=== PATIENT | female | born 1940 | race Caucasian/White ===

== ENCOUNTER 2016-11-07 15:24 | Inpatient (IN) | payer MEDICARE, BC ==
[~2016-11-07] VITALS: Ht 160 cm; Wt 77.2 kg
[2016-11-07 15:47] LABS: BILIRUBIN,URINE NEGATIVE (NEGATIVE); UROBILINOGEN,URINE NORMAL (NEGATIVE)
[2016-11-07 15:52] LABS: APPEARANCE,URINE CLEAR (CLEAR); UA COLOR YELLOW (YELLOW)
[2016-11-07] MEDS ORDERED: MEMA10TA PO (15:53)
[2016-11-07] MEDS ORDERED: ASPI-484 PO (15:55)
[2016-11-07] MEDS ORDERED: LEVO88TA5 PO (15:55)
[2016-11-07] MEDS ORDERED: DIVA500T17 PO (15:55)
[2016-11-07] MEDS ORDERED: DONE10TA7 PO (15:55)
[2016-11-07] MEDS ORDERED: MIRT15TA4 PO (15:55)
[2016-11-07 16:03] LABS: UR BENZODIAZEPINE QUAL NEGATIVE (NEGATIVE); UR COCAINE QUAL NEGATIVE (NEGATIVE)
[2016-11-07 16:08] LABS: BASOPHIL # 0.1 10^3/uL (0.0-0.1); BASOPHIL % 0.8 % (0.0-0.2); EOSINOPHIL # 0.3 10^3/uL (0.0-0.2); EOSINOPHIL % 3.2 % (0.0-5.0); HEMOGLOBIN 14.9 g/dL (12.0-15.0); LYMPHOCYTES % 28.9 % (24.0-44.0); MEAN CELL HGB 30.1 pg (26-34); MEAN CELL HGB CONCENTRATION 33.6 g/dL (33-37); MEAN CORP VOLUME 89.5 fL (78-100); MEAN PLATELET VOLUME 10.5 fL (7.8-11.0); MONOCYTES % 9.7 % (5.0-12.0); NEUTROPHIL # 5.9 10^3/uL (1.8-7.7); NEUTROPHILS % 57.1 % (41.0-85.0); RED CELL DISTRIBUTION WIDTH 14.5 % (11.5-14.5); WHITE BLOOD CELL 10.3 10^3/uL (4.5-11.0)
--- NOTE | 2016-11-07 16:10 | ER.PDOC ---
General Chief Complaint: Medical Clearance Stated Complaint: MEDICAL CLEARANCE TRAVEL OUT OF US: No Time seen by MD: 15:52 Source: patient, family History of Present Illness Initial Comments Advanced dementia, would like medical clearance for psych evaluation Allergies: Coded Allergies: No Known Allergies (Unverified , 11/07/16) Home Meds Reported Medications Donepezil Hcl (DONEPEZIL HCL) 10 Mg Tablet, 1 TAB PO DAILY, #90 TAB 1 Refill 11/07/16 Mirtazapine (MIRTAZAPINE) 15 Mg Tablet, 1 TAB PO HS, #30 TAB 3 Refills 11/07/16 Levothyroxine Sodium (LEVOTHYROXINE SODIUM) 88 Mcg Tablet, 1 TAB PO DAILY, #30 TAB 5 Refills 11/07/16 Aspirin (ASPIR 81) 81 Mg Tablet.dr, 1 TAB PO DAILY, #30 TAB 5 Refills 11/07/16 Divalproex Sodium (DIVALPROEX SODIUM ER) 500 Mg Tab.er.24h, 0.5 TAB PO BID, #60 TAB 11/07/16 Memantine Hcl (NAMENDA) 10 Mg Tablet, 28 MG PO DAILY, TABLET 11/07/16 Past Medical History Medical History: other Surgical History: hysterectomy, other Social History Smoking: non-smoker Alcohol Use: none Drug Use: none Review of Systems Constitutional: see HPI EENTM: no symptoms reported Respiratory: no symptoms reported Cardiovascular: no symptoms reported Gastrointestinal: no symptoms reported Genitourinary: no symptoms reported Musculoskeletal: no symptoms reported Psychiatric/Neurological: see HPI, anxiety, emotional problems Physical Exam General Appearance: No Apparent Distress, WD/WN Neck: Non-Tender Respiratory: chest non-tender CVS: reg rate & rhythm Gastrointestinal: Normal Bowel Sounds Rectal: Normal Exam Back: Normal Inspection Neurologic/Psychiatric: support representative II-XII NML as Tested Skin: Normal Color Lymphatic: No Adenopathy Results/Orders Results/Orders Laboratory Tests Test 11/07/16 15:41 11/07/16 15:55 11/07/16 16:10 Urine Collection Type Unknown Urine Color Yellow (YELLOW) Urine Appearance Clear (CLEAR) Urine Bilirubin Negative MG/DL (NEGATIVE) Urine Ketones Negative (NEGATIVE) Urine Specific [place] 1.020 (1.005-1.035) Urine pH 6 (5.0-6.0) Urine Protein Negative (NEGATIVE) Urine Urobilinogen Normal (NEGATIVE) Urine Nitrate Negative (NEGATIVE) Urine Leukocyte Esterase Negative (NEGATIVE) Urine Blood Negative (NEGATIVE) Urine Glucose Normal (NEGATIVE) Opiates Screen Negative (NEGATIVE) Barbiturate Screen Negative (NEGATIVE) Urine Tricyclic Antidepressants Negative (NEGATIVE) Phencyclidine (PCP) Screen Negative (NEGATIVE) Amphetamines Screen Negative (NEGATIVE) Benzodiazepines Screen Negative (NEGATIVE) Cocaine Screen Negative (NEGATIVE) Ur Tetrahydrocannabinol (THC) Scrn Negative (NEGATIVE) White Blood Count 10.3 10^3/uL (4.5-11.0) Red Blood Count 4.95 10^6/uL (4.00-5.20) Hemoglobin 14.9 g/dL (12.0-15.0) Hematocrit 44.3 % (36.0-46.0) Mean Corpuscular Volume 89.5 fL (78-100) Mean Corpuscular Hemoglobin 30.1 pg (26-34) Mean Corpuscular Hemoglobin Concent 33.6 g/dL (33-37) Red Cell Distribution Width 14.5 % (11.5-14.5) Platelet Count 233 10^3/uL (150-400) Mean Platelet Volume 10.5 fL (7.8-11.0) Neutrophils (%) (Auto) 57.1 % (41.0-85.0) Lymphocytes (%) (Auto) 28.9 % (24.0-44.0) Monocytes (%) (Auto) 9.7 % (5.0-12.0) Neutrophils # (Auto) 5.9 10^3/uL (1.8-7.7) Lymphocytes # (Auto) 3.0 10^3/uL (1.0-4.8) Monocytes # (Auto) 1.0 10^3/uL (0.3-0.8) Absolute Immature Granulocyte (auto 0.03 10^3 u/L (0-2) Eosinophils % 3.2 % (0.0-5.0) Basophils % 0.8 % (0.0-0.2) Basophils # 0.1 10^3/uL (0.0-0.1) Eosinophil Count 0.3 10^3/uL (0.0-0.2) Prothrombin Time 10.8 SEC (9.8-11.9) Prothromb Time International Ratio 1.0 Activated Partial Thromboplast Time 24.1 SEC (24.67-30.72) Sodium Level 141 mmol/L (132-145) Potassium Level 3.6 mmol/L (3.6-5.2) Chloride Level 106.0 mmol/L (96-109) Carbon Dioxide Level 27.5 mmol/L (20.0-32) Anion Gap 11.1 Blood Urea Nitrogen 10 mg/dL (7-18) Creatinine 0.79 mg/dL (0.59-1.40) Estimated GFR () 86.1 (>/=60) BUN/Creatinine Ratio 12.0 Glucose Level 110 mg/dL (70-110) Hemoglobin A1c 6.1 % (4.2-6.2) Calcium Level 8.8 mg/dL (8.4-10.5) Total Bilirubin 0.2 mg/dL (0.2-1.0) Aspartate Amino Transf (AST/SGOT) 23 U/L (0-35) Alanine Aminotransferase (ALT/SGPT) 25 U/L (12-78) Alkaline Phosphatase 100 U/L (50-136) Total Creatine Kinase 63 U/L (26-192) Creatine Kinase MB 0.9 ng/mL (0.5-3.6) Troponin I < 0.02 ng/mL (0.00-0.05) C-Reactive Protein 0.18 mg/dL (0.00-5.00) Pro-B-Type Natriuretic Peptide 293 pg/mL (0-125) Total Protein 7.7 g/dL (6.4-8.2) Albumin 3.4 g/dL (3.4-5.0) Globulin 4.3 Triglycerides Level 195 mg/dL (20-200) Cholesterol Level 258 mg/dL (120-240) LDL Cholesterol, Calculated 148.0 VLDL Cholesterol 39.0 HDL Cholesterol 71 mg/dL (32-96) Cholesterol Ratio (LDL/HDL) 2.0 Cholesterol/HDL Ratio [id number] Thyroid Stimulating Hormone (TSH) 13.126 mIU/mL (0.358-3.740) Valproic Acid (Depakene) Level 24 ug/mL (50-100) [place] Level < 0.20 mmol/L (0.6-1.2) Percent Immature Gran (Cell Imm) 0.30 % (0.00-0.50) Blood Gas Sample Site Left radial artery Blood Gas pH 7.446 (7.350-7.450) Blood Gas PCO2 38.1 mmHg (35.0-45.0) Blood Gas PO2 77.9 mmHg (75.0-100.0) Blood Gas HCO3 25.6 mmol/L (22.0-26.0) Blood Gas Base Excess 1.7 mmol/L (-2.0-2.0) James Test Positive Arterial Blood Oxygen Saturation 95.9 % (95-) Deoxyhemoglobin 4.1 % (0.2-0.6) Carboxyhemoglobin 0.6 % (0.5-1.5) Methemoglobin 0.2 % (0.2-0.6) Total Hemoglobin 15.0 % (13.5-17.5) Total Oxygen Concentration 20.1 % (13.5-17.5) Lactic Acid (Blood Gas) 1.8 MMOL/L (0.5-1.0) Blood Gas Temperature 37 Oxygen Delivery Method (LAB) Ra FiO2 21 % (20-101) Bicarbonate 26.8 mmol/L (23-27) Departure Time of Disposition: 17:10 Disposition: 09 ADMITTED INPATIENT Impression: Primary Impression: Dementia Referrals: RACHEL YANES MD,FACP (PCP) PRIMARY CARE PROVIDER LANA MOSES MD Nov 07, 2016 16:10
[2016-11-07 16:14] LABS: ABG PCO2 38.1 mmHg (35.0-45.0); ABG PH 7.446 (7.350-7.450); BE(B) 1.7 mmol/L (-2.0-2.0); HCO3act 25.6 mmol/L (22.0-26.0); pO2 77.9 mmHg (75.0-100.0)
--- NOTE | 2016-11-07 16:16 | DIREP ---
PROCEDURE:CHEST 1 VIEW COMPARISON:None. INDICATIONS:MEDICAL CLEARANCE FINDINGS: LUNGS/PLEURA:No significant pulmonary parenchymal abnormalities. No effusions. VASCULATURE:Normal. Unremarkable pulmonary vasculature. CARDIAC:Normal. No cardiac silhouette abnormality or cardiomegaly. MEDIASTINUM:Normal. No visible mass or adenopathy. BONES:A mild dextroscoliosis is seen of the thoracic spine. OTHER:Negative. CONCLUSION:No active or acute cardiopulmonary disease is seen. Dictated by: Brayan Breaux M.D. on 11/07/2016 at 04:13 PM
[2016-11-07] MEDS ORDERED: ATIVAN ONE (16:35)
[2016-11-07] MEDS ORDERED: HALDOL ONE (16:38)
[2016-11-07 16:45] LABS: ALANINE AMINOTRANSFERASE 25 U/L (12-78); ALKALINE PHOSPHATASE 100 U/L (50-136); ASPARTATE AMINO TRANSFERASE 23 U/L (0-35); CALCIUM 8.8 mg/dL (8.4-10.5); CARBON DIOXIDE 27.5 mmol/L (20.0-32); CHOLESTEROL 258 mg/dL (120-240); GLUCOSE 110 mg/dL (70-110); HDL CHOLESTEROL 71 mg/dL (32-96)
[2016-11-07 17:45] VITALS: BP 131/90
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
[2016-11-07] MEDS ORDERED: HALDOL IM PRN (18:30)
[2016-11-07] MEDS ORDERED: HALDOL PO PRN (18:30)
[2016-11-07] MEDS: ATIVAN PO PRN (18:38)
[2016-11-07] MEDS ORDERED: LORAZEPAM IM PRN (19:00)
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
[2016-11-07 19:59] VITALS: BP 163/93
[2016-11-07] MEDS: DEPAKOTE ER PO SCH (20:42)
[2016-11-07] MEDS: RISPERDAL PO SCH (20:42)
[2016-11-07] MEDS: REMERON PO SCH (21:00)
--- NOTE | 2016-11-07 23:57 | PRM.ACF1 ---
Admission Criteria Forms PSYCHIATRIC DISORDERS Clinical Indications for Inpatient Care (Place 'X' for any and all applicable criteria): Ongoing inpatient care may be needed for 1 or more of the following(1)(2)(3)(4)( 6)(7)(8): [ ]I. Danger to self or others not manageable at lower level of care. [ ]II. Grave disability (eg, inability to perform self care necessary at lower level of care) [ ]III. Agitation or inappropriate behavior interfering with care for primary condition (eg, attempting to discontinue lines or drains prematurely, unable to cooperate with respiratory care) [X]IV. Severe disability or disorder indicated by ALL of the following: [X]a) Severe behavioral health disorder-related symptoms or condition indicated by 1 or more of the following: [ ]i) Severe problem with cognition, memory, judgment, or impulse control [X]ii) Severe clinical manifestations (eg, hallucinations, delusions, other acute psychotic symptoms, fay, extreme agitation or anxiety)C [X]b) Patient management at lower level of care is not feasible until acute intervention or modification is initiated. Extended stay beyond goal length of stay for the primary condition may be needed untilALLof the following are present(1)(2)(3)(4)7)40)(23): [ ]a) Danger to self or others is absent or manageable at lower level of care [ ]b) Behavior crisis management, including physical or chemical restraints, is required and is not available at a lower level of care. [ ]c) Behavioral symptoms (e.g., agitation, somnolence, inappropriate behavior) are present, and are not manageable at a lower level of care. [ ]d) Patient cannot understand follow-up treatment and crisis plan. [ ]e) Provider and supports are sufficiently available at lower level of care. [ ]f) Patient can participate (e.g., verify absence of plan for harm) and is in needed of monitoring. The original [facility] [place] [place] [employer] content created by [facility] [employer] has been revised. The portions of the content which have been revised are identified through the use of italic text, and [employer] has neither reviewed nor approved the modified material. All other unmodified content is copyright [facility]. Please see references footnoted in the original [facility] [place] [place] [facility] edition 2015 Is [facility]/Br[facility] added/comple: YES JIAN RM CDS Nov 07, 2016 23:57
[2016-11-08] MEDS ORDERED: ARICEPT ONE (06:46)
[2016-11-08] MEDS ORDERED: ASPIRIN EC ONE (06:46)
[2016-11-08] MEDS ORDERED: NAMENDA ONE (06:47)
[2016-11-08 07:53] VITALS: BP 150/90
--- NOTE | 2016-11-08 08:30 | NUR ---
BEHAVIOR NOTE: This morning patient allowed COMPOUNDING PHARMACY TECHNICIAN to assist her with shower and nurse to perform skin assessment. Patient ate breakfast and is calm but becomes tearful and frustrated with pressured voice demanding to call her and to go home. Patient is sitting in a recliner in the day room mumbling to herself but denies hearing voices or talking to anyone. She is stating " Nothing is wrong with me" " I want to go home". Patient recently was discharged from [facility] and family reports her condition/symptoms/behaviors have worsened.
[2016-11-08] MEDS: ASPIRIN EC PO SCH (08:49)
[2016-11-08] MEDS: RISPERDAL PO SCH ×2 (08:49→21:00)
[2016-11-08] MEDS: DEPAKOTE ER PO SCH ×2 (08:49→21:00)
[2016-11-08] MEDS: NAMENDA PO SCH ×2 (08:50→21:00)
[2016-11-08] MEDS: ARICEPT PO SCH (08:50)
[2016-11-08] MEDS: SYNTHROID PO SCH (08:50)
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
--- NOTE | 2016-11-08 15:15 | NUR ---
MMSE: 03/21 MODERATE TO SEVERE IMPAIRMENT Addendum: 11/11/16 at 1515 by Yolande De Guzman, TERRY, J2EE CONSULTANT SW Amended: Links added.
--- NOTE | 2016-11-08 15:18 | NUR ---
GMAS: 05/21 NO DEPRESSION Addendum: 11/11/16 at 1518 by Yolande De Guzman, TERRY, FORENSIC SERGEANT SW Amended: Links added.
--- NOTE | 2016-11-08 15:31 | NUR ---
BATHROOM AIDE WAS GOING AROUND EMPTYING TRASH CAN IN ROOMS. WHEN ENTERED PTS BATHROOM TO CHECK TRASH CAN SHE FOUND THE TOILET PACKED WITH PAPER TOWELS. ASKED PT WHY PAPER TOWEL WERE STUFFED IN THE TOILER AND SHE SAID SHE DID NOT DO IT SHE HAS BEEN LYING IN THE BED THE WHOLE TIME. ALL THE PAPER TOWELS WERE REMOVED TILL TOILET FLUSHED FREELY. HOUSEKEEPING CALLED AND CAME AND REMOVED THE PAPER TOWELS FROM THE BATHROOM. EXPLAINED/SHOWED PT WHERE TOILET PAPER WAS. PT WENT AND POINTED TO IT. THEN CAME OUT AND SAID SHE COULD NOT GET THE PAPER TO COME OUT. SHOWED PT HOW TO GET THE TOILET PAPER TO COME OUT. WILL CONT TO MONITOR PT
--- NOTE | 2016-11-08 17:10 | NUR ---
BEHAVIOR NOTE: Patient has been calm today. She has requested to call her but has not become agitated when unable to reach him. Earlier today she was laying on her bed talking to herself crying. She denies hallucinations, delusions and suicidal thoughts and does not think anything is wrong with her. Patient has some memory loss and forgets where her room is and requires redirection. cnc machinist 2nd shift reported that she was confused about the toilet.
--- NOTE | 2016-11-08 18:45 | NUR ---
report received report from offgoing shift
[2016-11-08 19:58] VITALS: BP 132/71
--- NOTE | 2016-11-08 20:34 | NUR ---
medications Patient anxious, aggitated, countinously insisting on calling her , unable to redirect at this time, patient aggressive and hitting fists on nursing station counter, RN notified this nurse to give ativan 0.5mg at this time per prn orders
[2016-11-08] MEDS: REMERON PO SCH (21:00)
[2016-11-09] MEDS: SYNTHROID PO SCH (05:46)
[2016-11-09] MEDS ORDERED: ATIVAN ONE (05:58)
[2016-11-09] MEDS ORDERED: RISPERDAL ONE (06:43)
[2016-11-09] MEDS: ARICEPT PO SCH (07:23)
[2016-11-09] MEDS: ASPIRIN EC PO SCH (07:23)
[2016-11-09] MEDS: RISPERDAL PO SCH ×3 (07:23→20:27)
[2016-11-09] MEDS: NAMENDA PO SCH ×2 (07:23→20:27)
[2016-11-09] MEDS: DEPAKOTE ER PO SCH ×2 (07:23→20:27)
[2016-11-09 07:45] VITALS: BP 148/102
--- NOTE | 2016-11-09 08:07 | NUR ---
Status Pt is aggressive, yelling, attempting to bite, kick, hit staff, and is exit-seeking. Yells, "I own this hospital! I demand you let me call my right now!" "I've never seen such stupid people running this place." "When I started this, I put stipulations to let people call their family members whenever they want!" "You're all fired! I want you out of here now!" "I own this hospital, you need to get the hell out!" Pt is unable to be redirected with verbalization @ this time, PRN haldol and ativan have been administered @ this time d/t escalation in agitation and aggressiveness. Pt escorted to room with x 2 staff, security present @ this time.
--- NOTE | 2016-11-09 08:42 | PRM.PN ---
Mood: UP AND DOWN, IRRITABLE, MOOD SWINGS Sleep: SLEPT 8 HOURS LAST NIGHT Appetite: NORMAL APPETITE Suidical thoughts: NONE REPORTED Homicidal thoughts: NONE REPORTED Recent stressors: STRESS OF MENTAL ILLNESS Family support: AND DAUGHTER Aggressive Behavior: AGITATED, TRIES TO HIT STAFF, YELLS AND SCREAMS Ability to Perform ADL'sc: ABLE TO DO HER ADLS Psychotic sympstoms: DELUSIONAL THINKING, HALLUCINATIONS, PARANOIA Manic Symptoms: MOOD SWINGS, LABILE MOOD Living situation: LIVES AT HOME WITH HER Illicit Drug usec: NONE REPORTED Alcoholo use: NONE REPORTED Tobacco use: NONE REPORTED Family,PT,Surgical,&Current HX: Anxity Symptoms: MODERATE TO HIGH ANXIETY LEVEL Anger/Irritablility: SHE HAS PROBLEMS WITH ANGER AND IRRITABILITY Muscle Strength & Tone: WNL Gait & Station: WNL Appearance: Well groomed/hygience, Casual attire, Normal weight, Appears age stated Attitude & Behaviour: Uncooperative, Poor eye contact, Hostile, Psychomotor agitation Mood & Affect: Iabile, Blunted, Angry, Depressed Orientation: Disoriented to place, Disoriented to time, Disoriented to situation Attention/Concentration: Poor attention, Poor concentration Speech: Pressured, hyperverbal Judgement/Insight: Poor judgement, Poor insight Thought Process: Loose, Tangential Language: Kiswahili Thought content/Abnormal/Psych: A/V Barrett, Delusions Fund of Knowledge: Other Associations: JAREN Memory (recent and remote): Recent memory repaired, Remote memory repaired Constitutional: None Neurological: None Psychiatric: Depressed, Anxious, Psychosis [place] I: DELUSIONAL DISORDER; PSYCHOSIS; DEPRESSION; ANXIETY; DEMENTIA [place] II: DEFERRED [place] III: REFER TO PMH/MEDICAL CHART [place] IV: STRESS OF MENTAL ILLNESS [place] V: GAF=25 Assessment/Plan Assessment/Plan Assessment/Plan First Vital Signs Date Time Temp Pulse Resp B/P (MAP) Pulse Ox O2 Delivery O2 Flow Rate FiO2 11/07/16 15:46 97.9 81 18 99 11/07/16 15:50 136/82 (100) 11/07/16 17:45 Room Air Last Vital Signs Date Time Temp Pulse Resp B/P (MAP) Pulse Ox O2 Delivery O2 Flow Rate FiO2 11/08/16 19:58 96.4 79 20 132/71 (91) 96 Room Air THE PATIENT WAS SEEN BY DR. JAVED VIA TELEMEDICINE EQUIPMENT (VSEE) ALONG WITH THE TREATMENT TEAM. SHE HAS BEEN ANGRY AND IRRITABLE. SHE HAS BEEN AGGRESSIVE TOWARDS STAFF. THE PATIENT'S BEHAVIORS HAVE BEEN WORSE OVER THE PAST TWO WEEKS. THE PATIENT HAS SEXUALLY INAPPROPRIATE. THE PATIENT HAS DELUSIONAL THINKING THAT HER IS CHEATING ON HER. SHE HAS BEEN AGGRESSIVE TOWARDS HER . THE PATIENT HAS POOR INSIGHT INTO HER ILLNESS. THE PATIENT IS SLEEPING AND EATING OK. THE PATIENT SLEPT 8 HOURS LAST NIGHT. THE PATIENT DENIES SI OR HI. ASSESSMENT: DELUSIONAL DISORDER; PSYCHOSIS; DEPRESSION; GENERALIZED ANXIETY DISORDER; DEMENTIA WITH BEHAVIOR PROBLEMS PLAN: 1) CONTINUE [facility] MANAGEMENT. 2) INCREASE RISPERDAL TO 0.5MG PO BID. CONTINUE OTHER MEDICATIONS AT CURRENT DOSES. STAFF AGREEABLE WITH THE PLAN. THE PATIENT HAS A BENIGN BRAIN MASS PER FAMILY. SHE HAS NOT HAD A CT SCAN IN ABOUT A YEAR. SHE WILL GET A CT SCAN AND HAVE IT COMPARED TO HER PAST CT SCAN. Problems: (1) Dementia Status: Chronic ICD Code: F03.90 - Unspecified dementia without behavioral disturbance SNOMED: [id number] Patient History: Unknown LANA JAVED IV, MD Nov 09, 2016 08:42
--- NOTE | 2016-11-09 09:00 | NUR ---
VSEE Pt was seen by Dr. Howard via telemed. Received orders to increase scheduled risperdal, see EMAR. Pt has calmed down, is no longer yelling or attempting to hit staff. Pt is actively hallucinating, talking to wall or people not there. States, "I need to call my so I can get out of here. He is waiting for me to call him. I need to leave this hospital. There's nothing wrong with me." Able to be redirected with verbalization @ this time.
[2016-11-09 19:56] VITALS: BP 140/90
[2016-11-09] MEDS: REMERON PO SCH (20:27)
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
[2016-11-10] MEDS: SYNTHROID PO SCH (05:48)
[2016-11-10] MEDS: RISPERDAL PO SCH ×2 (07:35→20:14)
[2016-11-10] MEDS: ARICEPT PO SCH (07:35)
[2016-11-10] MEDS: ASPIRIN EC PO SCH (07:35)
[2016-11-10] MEDS: NAMENDA PO SCH ×2 (07:35→20:14)
[2016-11-10] MEDS: DEPAKOTE ER PO SCH ×2 (07:36→20:14)
[2016-11-10 07:58] VITALS: BP 149/78
--- NOTE | 2016-11-10 09:24 | DIREP ---
PROCEDURE:CT HEAD OR BRAIN W/O CONTRAST COMPARISON:[facility], CR, XRAY CHEST SINGLE VW, 11/07/2016, 03:16 PM. INDICATIONS:Brain mass TECHNIQUE:CT images were created without intravenous contrast. The study was reviewed on brain, subdural and bone windows. FINDINGS: VENTRICLES:Mild to moderate ventriculomegaly with atrophy noted. Mild periventricular white matter changes identified. CEREBRUM:Normal cerebral morphology with appropriate yang white matter differentiation. No acute infarct, bleed or mass lesion is seen. No acute or chronic epidural, subdural or subarachnoid hemorrhage is seen. No edema, midline shift or increased intracranial pressure is seen. CEREBELLUM:Negative. BRAINSTEM:Negative. BASAL CISTERNS:Negative. HEMORRHAGE:No MASS LESION:No ACUTE INFARCT:No SKULL:Normal. SINUSES:Normal. OTHER:None CONCLUSION:Moderate ventriculomegaly with atrophy and white matter changes. No acute infarct, bleed or mass lesion is seen. Suggest MR of the brain if a small mass lesion is suspected. Dictated by: Dixon Cavanaugh MD on 11/10/2016 at 09:21 AM
--- NOTE | 2016-11-10 13:00 | NUR ---
Status Pt is alert and oriented to self, month, and year. Has flat, but cooperative affect. Pt is able to be redirected with verbalization, able to follow simple commands. Pt is seen talking to self and has been overheard praying, "Dear God, please, let me go home. I won't ever do anything wrong again. I promise to be good. Just let me go home. I'll do what I'm supposed to. Have my come pick me up and take me home. I love my family so much. I want to go home, please God."
--- NOTE | 2016-11-10 14:14 | NUR ---
CT Spoke to pt's daughter, Deyanira, to confirm whether or not pt had reports of previous CTs. Daughter states that she will fax over latest CT report for comparison. Daughter reports that previous CTs have been done with contrast. Dr Rossi called and notified, received orders for CT of head with contrast.
--- NOTE | 2016-11-10 16:51 | DIREP ---
PROCEDURE:CT HEAD OR BRAIN W/ CONTRAST COMPARISON:[facility], CT, CT HEAD BRAIN W/O CONTRAST, 11/10/2016, 09:06 AM. INDICATIONS:Brain mass TECHNIQUE:CT images were created with intravenous contrast. The study was reviewed on brain, subdural and bone windows. FINDINGS: VENTRICLES:The ventricles are normal in size and configuration. CEREBRUM:The noncontrast CT was performed earlier at 9:00 a.m.. The postcontrast enhanced scans, shows no abnormal enhancement in the brain. No enhancing mass lesion is seen. Moderate ventriculomegaly with atrophy and white matter changes are noted unchanged. CEREBELLUM:Negative. BRAINSTEM:Negative. BASAL CISTERNS:Negative. HEMORRHAGE:No MASS LESION:No ACUTE INFARCT:No SKULL:Normal. SINUSES:Normal. OTHER:None CONCLUSION:No abnormal enhancement in the brain on the contrast-enhanced images. No enhancing mass lesion is seen. Dictated by: Dixon Cavanaugh MD on 11/10/2016 at 04:49 PM
[2016-11-10] MEDS: REMERON PO SCH (20:13)
[2016-11-10 20:28] VITALS: BP 139/72
[2016-11-11] MEDS: SYNTHROID PO SCH (06:17)
[2016-11-11 07:36] VITALS: BP 152/81
[2016-11-11] MEDS: ARICEPT PO SCH (07:39)
[2016-11-11] MEDS: DEPAKOTE ER PO SCH ×2 (07:39→20:16)
[2016-11-11] MEDS: ASPIRIN EC PO SCH (07:40)
[2016-11-11] MEDS: RISPERDAL PO SCH ×2 (07:40→20:16)
[2016-11-11] MEDS: NAMENDA PO SCH ×2 (07:40→20:16)
--- NOTE | 2016-11-11 11:35 | NUR ---
Status Pt is alert and oriented to self. Reports feeling depressed and anxious, unable to rate. States, "I want to go home. I want to get out of here and see my ." Denies suicidal/homicidal ideation. Pt appears to have auditory and visual hallucinations, is often seen talking to empty chairs, or to padron, and has full conversations with someone not there. Repeatedly states that it is time for her to go home, that the doctor had released her and that she could go home. Pt is able to be redirected with verbalization @ this time.
[2016-11-11 19:46] VITALS: BP 125/71
[2016-11-11] MEDS: REMERON PO SCH (20:15)
[2016-11-12] MEDS: SYNTHROID PO SCH (06:21)
[2016-11-12] MEDS: RISPERDAL PO SCH ×2 (08:07→20:29)
[2016-11-12] MEDS: DEPAKOTE ER PO SCH ×2 (08:07→20:29)
[2016-11-12] MEDS: NAMENDA PO SCH ×2 (08:07→20:29)
[2016-11-12] MEDS: ASPIRIN EC PO SCH (08:07)
[2016-11-12] MEDS: ARICEPT PO SCH (08:07)
[2016-11-12 08:44] VITALS: BP 137/76
--- NOTE | 2016-11-12 13:51 | NUR ---
BEHAVIOR NOTE: Patient is sitting in recliner in day room. She is anxious requesting to see psychiatrist. Patient told he will see patients about 1600 today. Patient wanting to go home today.
[2016-11-12 19:34] VITALS: BP 128/66
[2016-11-12] MEDS: REMERON PO SCH (20:29)
--- NOTE | 2016-11-13 02:38 | PNH ---
DATE: 11/12/2016 PSYCHIATRIC PROGRESS NOTE TIME: 5:00-5:20. HISTORY OF PRESENT ILLNESS: This patient is a 76-year-old female with a history of Alzheimer type dementia, mood disorder and depression. The patient was involuntarily admitted to the [facility], yelling, screaming on the unit. She was living in [facility], very aggressive towards her . Family is concerned about her mental health. The patient is quite delusional. The patient felt was having an affair and agitated, labile and threatening as a result, reported having auditory and visual hallucinations. Poor insight into her mental illness. Ongoing and active auditory hallucinations at this time with some visual hallucinations likely. The patient is clearly a candidate for ongoing hospitalization currently. OBJECTIVE: VITAL SIGNS: Blood pressure 137/76, pulse 71, respiration 20, temperature 98, oxygen saturation 92%. REVIEW OF SYSTEMS: HEENT: Normal. RESPIRATORY: No shortness of breath, coughing or wheezing. CARDIAC: No chest pain or palpitations. GASTROINTESTINAL: No nausea, vomiting, diarrhea or constipation. GENITOURINARY: No difficulty with urination. MUSCULOSKELETAL: No muscle pain. EXTREMITIES: No swelling or edema. NEUROLOGIC: Normal. ENDOCRINE: Normal. MENTAL STATUS EXAMINATION: Reveals an alert female with decreased psychomotor activity. Concentration and memory decreased. Speech and language are normal. Orientation decreased. Intelligence is average. Mood assessed as depressed. Affect constricted. Insight and judgment are poor. Thought is illogical, positive delusional thought with active hallucinations. ASSESSMENT AND PLAN DIAGNOSES: AXIS I: 1. Delusional disorder. 2. Alzheimer dementia with behavioral disturbance. 3. Psychosis. 4. Major depressive disorder. AXIS II: Deferred. AXIS III: Refer to past medical history. AXIS IV: Stress of mental illness. AXIS V: Current global assessment of functioning of 20. TREATMENT PLAN: 1. This patient was admitted involuntarily to the [facility] representing a significant danger to her and other individuals. 2. She has been placed on medications, specifically Aricept 10 mg a day, Remeron 15 mg a day for depression, Namenda 20 mg a day, Risperdal for psychosis 0.5 mg twice a day and valproic acid 500 mg twice a day, it is certain as to why she is taking this medication, it has been suggested that it may be for mood stability; however, she does not have a diagnosis of bipolar disorder and this medication would not be appropriate in that case. Therefore, it will be decreased to 500 mg at bedtime and she is having some confusion that may be due to Depakote 3. She will participate in groups, therapies and activities. 4. This patient will be discharged to an outpatient setting when it is felt she no longer represents a risk or danger to herself or other individuals. Aguila Granda MD DR: ELVIN/vira JOB# [id number]
[2016-11-13] MEDS: SYNTHROID PO SCH (05:33)
[2016-11-13 08:03] VITALS: BP 172/84
[2016-11-13] MEDS: ARICEPT PO SCH (09:40)
[2016-11-13] MEDS: ASPIRIN EC PO SCH (09:40)
[2016-11-13] MEDS: RISPERDAL PO SCH ×2 (09:40→20:20)
[2016-11-13] MEDS: NAMENDA PO SCH ×2 (09:40→20:20)
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
[2016-11-13] MEDS ORDERED: DEPAKOTE ER PO ONE (18:20)
[2016-11-13 19:43] VITALS: BP 121/82
[2016-11-13] MEDS: REMERON PO SCH (20:20)
[2016-11-13] MEDS: DEPAKOTE ER PO SCH (20:22)
[2016-11-14] MEDS: SYNTHROID PO SCH (06:14)
[2016-11-14 07:31] VITALS: BP 140/91
[2016-11-14] MEDS: ASPIRIN EC PO SCH (08:08)
[2016-11-14] MEDS: NAMENDA PO SCH ×2 (08:08→20:17)
[2016-11-14] MEDS: ARICEPT PO SCH (08:08)
[2016-11-14] MEDS: RISPERDAL PO SCH ×2 (08:08→20:17)
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
--- NOTE | 2016-11-14 13:17 | NUR ---
Status Pt is alert and oriented to self. Correctly verbalizes the season and who the president is. Pt is unable to rate depression, but is tearful @ times. Pt was seen by Dr. Granda and tx team in A.M. Pt stated, "I just want to go home and be with my family," when speaking to physician. Received orders to increase scheduled Remeron, see EMAR. Pt has been wandering, frequently reports wanting to lay down, but when escorted to room, remains there for a short amount of time and wanders out of room again. Pt is pleasant and cooperative, able to redirect with verbalization.
[2016-11-14] MEDS ORDERED: REMERON ONE (18:16)
[2016-11-14 19:40] VITALS: BP 155/87
[2016-11-14] MEDS: DEPAKOTE ER PO SCH (20:17)
[2016-11-14] MEDS: REMERON PO SCH (20:18)
--- NOTE | 2016-11-15 00:10 | NUR ---
behaviors PT. DECLINED TO ATTEND GROUP. ORIENTED TO NAME NOT YEAR OR MONTH. DENIES DEPRESSION AND ANXIETY.
[2016-11-15] MEDS: SYNTHROID PO SCH (05:44)
[2016-11-15 07:34] VITALS: BP 133/66
[2016-11-15] MEDS: ASPIRIN EC PO SCH (08:56)
[2016-11-15] MEDS: NAMENDA PO SCH ×2 (08:56→20:00)
[2016-11-15] MEDS: RISPERDAL PO SCH ×2 (08:56→20:00)
[2016-11-15] MEDS: ARICEPT PO SCH (08:57)
--- NOTE | 2016-11-15 09:24 | NUR ---
Status Pt is alert and oriented to self, month, and place. Has pleasant, cooperative affect. Denies depressive symptoms, states, "I'm happy. I just want to go home and be with my family." Pt denies hallucinations, when asked who she is talking to when she is in her room alone, pt stated, "I talk to myself cause I got no one else to talk to, " and laughed. No delusional thinking exhibited @ this time.
--- NOTE | 2016-11-15 18:35 | PCM.HP ---
History of Present Illness Reason for Visit: AD with Behavior, Delusional D/O Past Social History Smoke: No Travel Hx EBOLA RISK:Travel to/contact w: No Is pt experiencing any Ebola s: No Review of Systems Allergies: Coded Allergies: No Known Allergies (Unverified , 11/07/16) Scheduled Aspirin (Aspir 81), 1 TAB PO DAILY, (Reported) Divalproex Sodium (Divalproex Sodium Er), 0.5 TAB PO BID, (Reported) Donepezil Hcl (Donepezil Hcl), 1 TAB PO DAILY, (Reported) Levothyroxine Sodium (Levothyroxine Sodium), 1 TAB PO DAILY, (Reported) Memantine Hcl (Namenda), 28 MG PO DAILY, (Reported) Mirtazapine (Mirtazapine), 1 TAB PO HS, (Reported) VTE VTE Risk Total Score: 2 VTE Risk Score VTE Risk: Score 0-1 = Low Risk (Aggressive mobilization; early ambulation; no VTE prophylaxis required) Score 2: Moderate Risk (Intermittent/Pneumatic Compression Device OR Lovenox/Heparin/Coumadin) Score 3-4: High Risk (Intermittent/Pneumatic Compression Device AND Lovenox/Heparin/Coumadin) Score > or =5: Highest Risk (Intermittent/Pneumatic Compression Device AND Lovenox/Heparin/Coumadin) VTE VTE Present on Admission: No Currently receiving anticoagul: No VTE Risk Total Score: 2 Exam Vital Signs Vital Signs Date Time Temp Pulse Resp B/P (MAP) Pulse Ox O2 Delivery O2 Flow Rate FiO2 11/15/16 07:34 98.2 66 20 133/66 (88) 93 Room Air Assessment/Plan Assessment/Plan Problems: (1) Psychosis Status: Acute ICD Code: F29 - Unspecified psychosis not due to a substance or known physiological condition SNOMED: 78838244 (2) Alzheimer's dementia with behavioral disturbance Status: Chronic ICD Code: G30.8 - Other Alzheimer's disease; F02.81 - Dementia in other diseases classified elsewhere with behavioral disturbance SNOMED: 2765729945471 (3) Delusional disorder Status: Acute ICD Code: F22 - Delusional disorders SNOMED: 26260788 (4) Dementia Status: Chronic ICD Code: F03.90 - Unspecified dementia without behavioral disturbance SNOMED: 73529033 Patient History: Unknown KAILYN SANTANA MD Nov 15, 2016 18:34
[2016-11-15 19:00] VITALS: BP 133/68
[2016-11-15] MEDS: REMERON PO SCH (20:00)
[2016-11-15] MEDS: DEPAKOTE ER PO SCH (20:00)
--- NOTE | 2016-11-15 22:41 | NUR ---
behaviors pt. oriented to name not year or month. denies depression and anxiety tonight. declined to attend group tonight. pt. in her room at this time awake and talking to someone not there.
[2016-11-16] MEDS: SYNTHROID PO SCH (06:10)
[2016-11-16] MEDS: ARICEPT PO SCH (07:39)
[2016-11-16] MEDS: RISPERDAL PO SCH ×2 (07:39→20:24)
[2016-11-16] MEDS: ASPIRIN EC PO SCH (07:39)
[2016-11-16] MEDS: NAMENDA PO SCH ×2 (07:39→20:24)
[2016-11-16 08:04] VITALS: BP 134/79
--- NOTE | 2016-11-16 10:07 | NUR ---
Status Pt is alert and oriented to self and hospital. Denies depressive symptoms, has not been overheard talking to someone/self in room. Pt frequently requests to go to bed and asks staff to "fix" her covers, when staff assists pt with getting in bed and covering her up, pt will lay down briefly, and comes out of room and asks staff to do the same thing. Pt is able to be redirected with verbalization @ this time. Has flat affect and is withdrawn, but responds appropriately when approached.
--- NOTE | 2016-11-16 17:06 | NUR ---
VSEE Pt was seen by Dr. Granda via telemed, received orders to decrease scheduled Depakote, see EMAR.
[2016-11-16] MEDS ORDERED: DEPAKOTE ER PO ONE (18:21)
[2016-11-16 19:27] VITALS: BP 155/82
[2016-11-16] MEDS: REMERON PO SCH (20:24)
[2016-11-16] MEDS ORDERED: DEPAKOTE ER PO SCH (21:00)
[2016-11-17] MEDS: SYNTHROID PO SCH (05:23)
[2016-11-17] MEDS: ASPIRIN EC PO SCH (07:34)
[2016-11-17] MEDS: ARICEPT PO SCH (07:34)
[2016-11-17] MEDS: NAMENDA PO SCH ×2 (07:34→20:22)
[2016-11-17] MEDS: RISPERDAL PO SCH ×2 (07:34→20:22)
[2016-11-17 07:50] VITALS: BP 135/80
--- NOTE | 2016-11-17 17:51 | NUR ---
BEHAVIOR NOTE: Patient has not wanted to participate in groups today. She has retreated to her room and has wanted to lay down. She has not been aggressive and has had no hallucinations.
[2016-11-17 19:07] VITALS: BP 167/92
[2016-11-17] MEDS: DEPAKOTE ER PO SCH (20:22)
[2016-11-17] MEDS: REMERON PO SCH (20:22)
[2016-11-18] MEDS ORDERED: ATIVAN ONE (02:47)
--- NOTE | 2016-11-18 03:58 | NUR ---
BEHAVIOR PT IS IN BED CRYING. SAYING THAT IS OVER AT HER SISTERS HOUSE HAVING SEX WITH HER. WHEN ATTEMPT TO REDIRECT PT SHE SAYS JUST ASK ANYONE. THEY ALL SEE HIM OVER THERE ALL THE TIME. ATTEMPT TO EXPLAIN TO PT THAT SPOUSE IS AT HOME AND ASLEEP DUE TO THE TIME. PT INSIST THAT HE IS NOT. WANTS TO KNOW WHY HE NEVER COMES TO SEE HER IF HE ISN'T OVER THERE. EXPLAINED TO PT THAT HE IS AT HOME IN [place] AND SHE IS IN THE HOSPITAL IN [place]. IT MAYBE DIFFICULT FOR HIM TO GET HERE TO SEE HER. REMINDED PT SHE DID TALK TO PT ON THE PHONE ON SATURDAY. REMINDED PT THAT SHE CAN CALL PT AGAIN TODAY AFTER LUNCH. EXPLAINED TO PT TRY AND GET SOME SLEEP. VOICED SHE WOULD TRY. CONTINUES TO BE HEARD TALKING TO SELF IN ROOM. RN INFORMED OF PT THOUGHTS.
[2016-11-18] MEDS: SYNTHROID PO SCH (04:49)
[2016-11-18] MEDS: ATIVAN PO PRN (04:49)
--- NOTE | 2016-11-18 04:49 | NUR ---
BEHAVIOR PT CONTINUES TO CRY AND THINK SPOUSE IS SLEEPING WITH SISTER. UNABLE TO REDIRECT. ATIVAN 0.5MG PO GIVEN TO HELP CALM PT DOWN AND SETTLE HER DOWN. WILL MONITOR.
[2016-11-18 07:40] VITALS: BP 125/76
[2016-11-18] MEDS: NAMENDA PO SCH ×2 (08:12→20:44)
[2016-11-18] MEDS: ARICEPT PO SCH (08:12)
[2016-11-18] MEDS: ASPIRIN EC PO SCH (08:13)
[2016-11-18] MEDS: RISPERDAL PO SCH ×2 (08:13→20:44)
--- NOTE | 2016-11-18 14:34 | NUR ---
PT STATUS PT HAS BEEN HALLUCINATING AND TALKING TO CHILDREN THAT ARE RIDING ON A TRAIN DOWN THERE BY THE STOP SIGN.. SHE STATES. PT SPOKE TO HER DAUGHTER MARIAA AND WAS REQUESTING TO LIVE WITH HER PT IS STILL THINKING THAT HER IS SLEEPING WITH HER SISTER AND / OR HER NEICE. PTS DAUGHTER ATTEMPTED TO REDIRECT HER ABOUT THIS IDEA BUT PT REFUSES TO BELIEVE HER. PHONE CALL ENDED AND PT HAD PT PHONE ON NURSES DESK. ABOUT 15 MINUTES LATER NURSES HEARD PT HOLLARING AND WHEN RN ENTERED THE ROOM PT WAS HALLUCINATING THAT SHE WAS HAVING SEX WITH HER . PT AMBULATORY TO DAY ROOM ABOUT 10 MIUTES AFTER AND SAT IN ROOM TO WATCH TX WITH OTHER PTS. PT HOLLARING THAT NURSES NEED TO SAVE THOSE PEOPLE INDICATIING THE PEOPLE ON TV.PT WAS REMINDED TO OPEN HER EYES THAT SHE WAS IN THE HOSPITAL. PT CONTINUES TO MAKE COMMENTS ON SAVING THE PERSONS ON TV.
[2016-11-18 19:24] VITALS: BP 137/92
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
[2016-11-18] MEDS: DEPAKOTE ER PO SCH (20:44)
[2016-11-18] MEDS: REMERON PO SCH (20:44)
[2016-11-19] MEDS: SYNTHROID PO SCH (05:44)
[2016-11-19] MEDS: RISPERDAL PO SCH ×2 (07:46→20:09)
[2016-11-19] MEDS: ASPIRIN EC PO SCH (07:47)
[2016-11-19] MEDS: NAMENDA PO SCH ×2 (07:47→20:09)
[2016-11-19] MEDS: ARICEPT PO SCH (07:47)
[2016-11-19 08:06] VITALS: BP 136/85
[2016-11-19 18:08] VITALS: BP 134/73
[2016-11-19] MEDS: REMERON PO SCH (20:09)
--- NOTE | 2016-11-20 05:36 | NUR ---
STATUS PT. WAS ORIENTED TIMES 1 TO NAME. DECLINED GROUP THIS SHIFT. DENIES DEPRESSION,ANXIETY AND PAIN ON ASSESSMENT.
[2016-11-20] MEDS: SYNTHROID PO SCH (05:43)
[2016-11-20 07:57] VITALS: BP 137/101
[2016-11-20] MEDS: ARICEPT PO SCH (08:40)
[2016-11-20] MEDS: NAMENDA PO SCH ×2 (08:40→20:20)
[2016-11-20] MEDS: ASPIRIN EC PO SCH (08:40)
--- NOTE | 2016-11-20 09:52 | PNH ---
DATE: 11/19/2016 PSYCHIATRIC PROGRESS NOTE TIME: 5:00-5:20. HISTORY OF PRESENT ILLNESS: This patient is a 76-year-old female with a history of Alzheimer type dementia with behavioral disturbance, major depressive disorder with psychosis. The patient was admitted to the [facility], yelling, screaming, requiring antipsychotic medication acutely. Quite psychotic and delusional. Family is very concerned about her. Delusional that her is having an affair. She is persisting in having these thoughts with her niece now, very depressed, despondent, tearful, delusional and paranoid. The patient remains quite symptomatic and is appropriate for ongoing treatment to the [facility]. OBJECTIVE: VITAL SIGNS: Blood pressure 136/85, pulse 68, respirations 18, temperature 98.4, oxygen saturation 93%. REVIEW OF SYSTEMS: HEENT: Normal. RESPIRATORY: No shortness of breath, coughing or wheezing. CARDIAC: No chest pain or palpitations. GASTROINTESTINAL: No nausea, vomiting, diarrhea or constipation. GENITOURINARY: No difficulty urinating. MUSCULOSKELETAL: No muscle pain. EXTREMITIES: No swelling or edema. NEUROLOGIC: Normal. ENDOCRINE: Normal. MENTAL STATUS EXAMINATION: Reveals an alert female, severely decreased psychomotor activity. Concentration and memory decreased. Speech and language are normal. Orientation decreased. Intelligence is average. Mood assessed as depressed. Affect constricted. Insight and judgment are poor. Thought is illogical, positive delusional thought and paranoia. ASSESSMENT AND PLAN: DIAGNOSES: AXIS I: 1. Major depressive disorder with psychosis. 2. Dementia with behavioral disturbance. AXIS II: Deferred. AXIS III: Refer to past medical history. AXIS IV: Stress of mental illness. AXIS V: Current global assessment of functioning of 25. TREATMENT PLAN: 1. This patient was admitted involuntarily to the [facility] representing clear risk or danger to herself and others. 2. She has been placed on medications, specifically Risperdal, which was increased to 2 mg at bedtime today based on psychosis, Remeron 30 mg at bedtime for depression, Depakote discontinued as she has no bipolar disorder and also no seizure disorder, Namenda 20 mg, Aricept 10 mg. 3. She is participating in groups, therapies and activities. 4. This patient will be discharged to an outpatient setting, back to her home when it is felt she no longer represents a risk or danger to herself or others. Aguila Granda MD DR: ELVIN/vira JOB# [id number]
--- NOTE | 2016-11-20 13:55 | NUR ---
Status Pt is alert and oriented to self and time of year. Denies depression, anxiety, suicide ideation, or homicidal ideation. Pt has been pleasant, but is withdrawn. Isolates to room, is overheard speaking to in room. Pt has come out of room requesting that staff cover her up, or that they tell "Priyank" that he needs to come pick her up because she's discharged. Pt is able to be redirected with verbalization.
[2016-11-20 19:30] VITALS: BP 137/79
[2016-11-20] MEDS: RISPERDAL PO SCH (20:20)
[2016-11-20] MEDS: REMERON PO SCH (20:20)
[2016-11-21] MEDS: SYNTHROID PO SCH (06:13)
[2016-11-21 07:31] VITALS: BP 132/70
[2016-11-21] MEDS: NAMENDA PO SCH ×2 (09:24→20:02)
[2016-11-21] MEDS: ASPIRIN EC PO SCH (09:24)
[2016-11-21] MEDS: ARICEPT PO SCH (09:24)
--- NOTE | 2016-11-21 10:14 | NUR ---
JEWELRY WHEN FAMILY WAS HERE FOR TREATMENT TEAM THIS MORNING THEY ASKED ABOUT JEWELRY. CALLED SECURITY AND THE FAMILY WAS DIRECTED TO THE SECURITY OFFICE WHEN LEFT AND SIGNED FOR JEWELRY AND TOOK IT WITH THEM.
--- NOTE | 2016-11-21 18:17 | NUR ---
BEHAVIOR NOTE: Patient has hallucinated today seeing a [place] child and has become upset over having to take care of the child. She has been calm and cooperative today but has not effectively participated in groups today. Patient has possible discharge plans for Saturday to home with with home health set in place.
[2016-11-21 19:51] VITALS: BP 116/86
[2016-11-21] MEDS: REMERON PO SCH (20:02)
[2016-11-21] MEDS: RISPERDAL PO SCH (20:02)
--- NOTE | 2016-11-22 02:30 | PNH ---
DATE: 11/21/2016 HISTORY OF PRESENT ILLNESS: This is a 76-year-old female with a history of Alzheimer's type dementia and significant depression as well as psychotic symptoms with delusional thought, feeling that her was having an affair with a relative. Auditory and visual hallucinations. Mood depressed with disturbed sleep, appetite, energy and concentration and some hopelessness. The patient is being treated actively with medication and therapy, although she remains quite symptomatic at this time and we did have a meeting with the family this morning and she is a candidate for ongoing hospitalization. OBJECTIVE: VITAL SIGNS: Blood pressure 172/70, pulse 75, respirations 22, temperature 97.6 and oxygen saturation 95%. REVIEW OF SYSTEMS: HEENT: Normal. RESPIRATORY: No shortness of breath, coughing or wheezing. CARDIAC: No chest pain or palpitations. GASTROINTESTINAL: No nausea, vomiting, diarrhea or constipation. GENITOURINARY: No difficulty with urination. MUSCULOSKELETAL: No muscle pain. EXTREMITIES: No swelling or edema. NEUROLOGIC: Normal. ENDOCRINE: Normal. MENTAL STATUS EXAMINATION: Reveals an alert female with decreased psychomotor activity. Concentration and memory poor. Speech and language are normal. Orientation decreased. Intelligence is average. Mood assessed as depressed. Affect constricted. Insight and judgment are poor. Thought is illogical, positive delusional thought. ASSESSMENT AND PLAN: DIAGNOSES: AXIS I: 1. Major depressive disorder with psychosis. 2. Delusional disorder. 3. Dementia with behavioral disturbance. AXIS II: Deferred. AXIS III: Refer to past medical history. AXIS IV: Stress and mental illness. AXIS V: Current global assessment of functioning of 25. TREATMENT PLAN: 1. This patient was admitted involuntarily to the [facility] representing a danger or risk to herself and others. 2. She has been placed on medications, specifically Aricept 10 mg a day, Remeron increased to 30 mg a day, Risperdal increased to 2 mg at bedtime and valproic acid discontinued as it was not indicated. 3. This patient will be discharged back to an outpatient setting when she no longer represents a risk or danger to herself or others. Aguila Granda MD DR: ELVIN/vira JOB# [id number]
[2016-11-22] MEDS: SYNTHROID PO SCH (06:15)
--- NOTE | 2016-11-22 07:33 | NUR ---
BEHAVIOR NOTE: Daughter called this morning and reported concerns of her mother being discharged this coming Saturday. She reported that she was talking to her last night and that she was anxious, crying and delusional making comments "Your dad has fathered another child and I don't know if I want to go home with him" "There are children in the room and people yelling". Daughter is concerned with these behaviors and upcoming discharge back to home.
[2016-11-22 07:53] VITALS: BP 141/78
[2016-11-22] MEDS: ARICEPT PO SCH (07:57)
[2016-11-22] MEDS: ASPIRIN EC PO SCH (07:58)
[2016-11-22] MEDS: NAMENDA PO SCH ×2 (07:58→20:00)
--- NOTE | 2016-11-22 17:10 | NUR ---
BEHAVIOR NOTE: Patient has participated in groups today but has not initiated conversations with anyone. She has been mumbling to self at times. She has not been aggressive towards staff .
[2016-11-22 19:00] VITALS: BP 145/66
[2016-11-22] MEDS: REMERON PO SCH (20:00)
[2016-11-22] MEDS: RISPERDAL PO SCH (20:00)
--- NOTE | 2016-11-23 01:23 | NUR ---
BEHAVIORS PT. ORIENTED TO NAME NOT YEAR OR MONTH. DENIES DEPRESSION,ANXIETY AND PAIN. PT. DID NOT EXHIBIT HALLUCINATION TONIGHT.
[2016-11-23] MEDS: SYNTHROID PO SCH (06:21)
[2016-11-23] MEDS: ASPIRIN EC PO SCH (08:07)
[2016-11-23] MEDS: ARICEPT PO SCH (08:07)
[2016-11-23] MEDS: NAMENDA PO SCH ×2 (08:07→20:23)
[2016-11-23 08:45] VITALS: BP 159/82
--- NOTE | 2016-11-23 11:51 | NUR ---
Status Pt is alert and oriented to self, has cooperative, but flat affect. Denies depression/anxiety and thoughts of hurting others. Pt reports seeing her cat, sabine, out in the pasture. When asked if she still believed her was having an affair, pt stated, "No. I love my . I love my family, and I want to go home." Pt became tearful, then stated, "I just don't see why he has to be running around with so many women." When asked what she meant by that, pt stated, "I don't know why he does it. I love him so much." Pt was able to be redirected with verbalization @ this time.
[2016-11-23 19:47] VITALS: BP 171/77
[2016-11-23] MEDS: REMERON PO SCH (20:24)
[2016-11-23] MEDS: RISPERDAL PO SCH (20:24)
--- NOTE | 2016-11-24 03:38 | PNH ---
DATE: 11/23/2016 HISTORY OF PRESENT ILLNESS: This patient is a 76-year-old female brought in to the [facility] [place] [employer]. The patient was having a very delusional and psychotic behavior. The patient was severely depressed with depressed mood, disturbed sleep, appetite, energy and concentration. Active auditory and visual hallucinations and paranoia. Delusional thought, feeling that her was having affairs and agitated, threatening assault towards the . The patient continues to have delusional thought and auditory hallucinations at this point. The concern is assaultive and agitated behavior she is to return home and therefore that would not be appropriate and she is a candidate for ongoing hospitalization. OBJECTIVE: VITAL SIGNS: Temperature 97.8, pulse 70, respirations 16, oxygen saturation 96%, blood pressure 159/82. REVIEW OF SYSTEMS: HEENT: Normal. RESPIRATORY: No shortness of breath, coughing or wheezing. CARDIAC: No chest pain or palpitations. GASTROINTESTINAL: No nausea, vomiting, diarrhea or constipation. GENITOURINARY: No difficulty with urination. MUSCULOSKELETAL: No muscle pain. EXTREMITIES: No swelling or edema. NEUROLOGIC: Normal. ENDOCRINE: Normal. MENTAL STATUS EXAMINATION: Reveals an alert female with decreased psychomotor activity. Concentration and memory decreased. Speech and language are normal. Orientation decreased. Intelligence is average. Mood assessed as depressed. Affect constricted. Insight and judgment are poor. Thought is illogical, positive delusional thought. ASSESSMENT AND PLAN: DIAGNOSES: AXIS I: 1. Major depressive disorder with psychosis. 2. Delusional disorder. 3. Dementia with behavioral disturbance. AXIS II: Deferred. AXIS III: Refer to past medical history. AXIS IV: Stress and mental illness. AXIS V: Current global assessment of functioning of 25. TREATMENT PLAN: 1. This patient was admitted involuntarily at the [facility] representing a danger or risk to herself. 2. She has been placed on medication increased today to Risperdal 3 mg at bedtime and Remeron 45 mg at bedtime. She is also on Aricept and Namenda. Valproic acid was stopped as she has no seizure disorder and no history of bipolar disorder and it was not indicated. 3. She is participating in groups, therapies and activities. 4. She will be discharged back to home when it is felt she no longer represents a risk of danger to herself or other individuals. Aguila Granda MD DR: ELVIN/vira JOB# [id number]
[2016-11-24] MEDS: SYNTHROID PO SCH (06:17)
[2016-11-24 07:49] VITALS: BP 126/75
[2016-11-24] MEDS: ARICEPT PO SCH (08:28)
[2016-11-24] MEDS: ASPIRIN EC PO SCH (08:28)
[2016-11-24] MEDS: NAMENDA PO SCH (08:28)
--- NOTE | 2016-11-24 08:56 | NUR ---
Status Pt is alert and oriented to self and season. Has pleasant affect, is cooperative with staff, but isolates to room. Pt does not initiate interaction. Continues to exhibit delusional thinking, has not been overheard talking to someone not there this A.M.
--- NOTE | 2016-11-24 17:03 | NUR ---
Delusions Pt was lying supine in bed, awake, tearful. When pt approached, pt stated, "I don't know why he has to run around with those women." When pt was asked who she was talking about, pt stated, "Priyank. He's been running around with Lisset, my niece." Pt was asked what she would do when she saw her , pt stated, "I don't know. I just wish he wouldn't do that. I've loved him my whole life, but he just won't stop. He said he loves sex and he's only loved sex when he was born. He won't do anything else." Pt was able to be redirected with verbalization. Pt was walked down to day room for supper, pleasant and cooperative @ this time.
[2016-11-24 19:00] VITALS: BP 122/71
--- NOTE | 2016-11-25 09:38 | PRM.PN ---
Mood: UP AND DOWN (HAS IMPROVED FROM ADMISSION) Sleep: SLEEPING OK AT NIGHT, SLEPT 8 HOURS LAST NIGHT Appetite: NORMAL APPETITE, ATE 100% OF HER BREAKFAST THIS MORNING Suidical thoughts: NONE REPORTED Homicidal thoughts: NONE REPORTED Recent stressors: STRESS OF MENTAL ILLNESS Family support: AND FAMILY Aggressive Behavior: NONE REPORTED RECENTLY Ability to Perform ADL'sc: YES Psychotic sympstoms: DELUSIONAL, PARANOIA, ODD THINKING, HALLUCINATIONS Manic Symptoms: MOOD SWINGS Living situation: LIVES WITH HER IN [place] Illicit Drug usec: NONE REPORTED Alcoholo use: NONE REPORTED Tobacco use: NONE REPORTED Family,PT,Surgical,&Current HX: Anxity Symptoms: MODERATE ANXIETY LEVEL Anger/Irritablility: SOME ANGER AND IRRITABLITY (HAS IMPROVED FROM ADMISSION) Muscle Strength & Tone: WNL Gait & Station: WNL Appearance: Well groomed/hygience, Casual attire, Normal weight, Appears age stated Attitude & Behaviour: Cooperative/Pleasant, Good eye contact Mood & Affect: Euthymic/appr/congruent, Iabile Orientation: Disoriented to place, Disoriented to time, Disoriented to situation Attention/Concentration: Fair attention, Fair concentration Speech: Reg rate/vol/rhyth/prosod Judgement/Insight: Poor judgement, Poor insight Thought Process: Linear/goal directed Language: Citizen [place] Thought content/Abnormal/Psych: A/V Barrett, Delusions Fund of Knowledge: Other Associations: WNL/Normal Associations Memory (recent and remote): Recent memory repaired, Remote memory repaired Constitutional: None Neurological: None Psychiatric: Depressed, Anxious, Psychosis [place] I: DELUSIONAL DISORDER; PSYCHOSIS, DEMENTIA; ANXIETY [place] II: DEFERRED [place] III: REFER TO PMH/MEDICAL CHART [place] IV: STRESS OF MENTAL ILLNESS [place] V: GAF=25 TO 30 Assessment/Plan Assessment/Plan Assessment/Plan First Vital Signs Date Time Temp Pulse Resp B/P (MAP) Pulse Ox O2 Delivery O2 Flow Rate FiO2 11/07/16 15:46 97.9 81 18 99 11/07/16 15:50 136/82 (100) 11/07/16 17:45 Room Air Last Vital Signs Date Time Temp Pulse Resp B/P (MAP) Pulse Ox O2 Delivery O2 Flow Rate FiO2 11/24/16 19:00 96.6 74 18 122/71 (88) 94 Room Air THE PATIENT WAS SEEN BY DR. JAVED VIA TELEMEDICINE EQUIPMENT (VSEE) ALONG WITH THE TREATMENT TEAM. THE PATIENT HAS STRUGGLED WITH HALLUCINATIONS AND DELUSIONS PER STAFF. SHE FEELS LIKE HER IS CHEATING ON HER. SHE HAS REPORTED THAT THERE ARE "PARASITES IN HER SHAMPOO." SHE HAS SHOWN IMPROVEMENT WITH HER MEDICATIONS. SHE IS REPORTEDLY TAKING HER MEDICATIONS. SHE IS SLEEPING OK AT NIGHT. THE PATIENT HAS A NORMAL APPETITE. THE PATIENT DENIES SI OR HI. THE PATIENT HAS A MODERATE ANXIETY LEVEL. THE PATIENT'S MEDICATIONS WERE INCREASED ON SATURDAY BY DR. BUTTS. ASSESSMENT: DELUSIONAL DISORDER; PSYCHOSIS; MAJOR DEPRESSIVE DISORDER; GENERALIZED ANXIETY DISORDER; ALZHEIMER'S DEMENTIA WITH BEHAVIOR PROBLEMS. PLAN: 1) CONTINUE BORGES [facility]. 2) CONTINUE CURRENT MEDICATIONS. STAFF AGREEABLE WITH THE PLAN. THE PATIENT WAS AGREEABLE WITH THE PLAN. TODAY'S VITAL SIGNS: TEMP.=98.0, PULSE=85, RESP.=16, AU=866/96, O2 SAT WAS 92% ON RA. Problems: (1) Dementia Status: Chronic ICD Code: F03.90 - Unspecified dementia without behavioral disturbance SNOMED: 05188863 (2) Delusional disorder Status: Acute ICD Code: F22 - Delusional disorders SNOMED: 42824400 (3) Psychosis Status: Acute ICD Code: F29 - Unspecified psychosis not due to a substance or known physiological condition SNOMED: 09039864 (4) Alzheimer's dementia with behavioral disturbance Status: Chronic ICD Code: G30.8 - Other Alzheimer's disease; F02.81 - Dementia in other diseases classified elsewhere with behavioral disturbance SNOMED: 1794173465365 Patient History: Unknown LANA JAVED IV, MD Nov 25, 2016 09:38
[2016-11-26] MEDS: SYNTHROID PO SCH (06:30)
[2016-11-26 07:30] VITALS: BP 136/68
[2016-11-26] MEDS: ARICEPT PO SCH (09:00)
[2016-11-26] MEDS: NAMENDA PO SCH ×2 (09:00→20:35)
[2016-11-26] MEDS: ASPIRIN EC PO SCH (09:00)
[2016-11-26 12:03] LABS: APPEARANCE,URINE CLEAR (CLEAR); UA COLOR YELLOW (YELLOW)
[2016-11-26 12:04] LABS: YEAST,URINE MODERATE
[2016-11-26 12:06] LABS: BILIRUBIN,URINE NEGATIVE (NEGATIVE); UROBILINOGEN,URINE NEGATIVE (NEGATIVE)
--- NOTE | 2016-11-26 14:47 | NUR ---
DISCHARGE PLAN: SW SPOKE TO DAUGHTER ARLETH TO DISCUSS SNF A STEP DOWN BEFORE PT RETURNS HOME. DAUGHTER VERBALIZED THAT SHE WOULD LIKE TO TALK TO FATHER FIRST AND WILL CALL THIS WORKER BACK. SS TO FOLLOW
--- NOTE | 2016-11-26 17:38 | NUR ---
BEHAVIOR NOTE: Patient has retreated to room today and has not participated in all groups. She has not voiced any hallucinations auditory/visual during this shift.
[2016-11-26 19:53] VITALS: BP 144/76
[2016-11-26] MEDS: RISPERDAL PO SCH (20:35)
[2016-11-26] MEDS: REMERON PO SCH (20:35)
[2016-11-27] MEDS: SYNTHROID PO SCH (05:52)
[2016-11-27 07:54] VITALS: BP 144/81
[2016-11-27] MEDS: ARICEPT PO SCH (09:18)
[2016-11-27] MEDS: NAMENDA PO SCH ×2 (09:18→20:30)
[2016-11-27] MEDS: ASPIRIN EC PO SCH (09:18)
[2016-11-27] MEDS: RISPERDAL PO SCH ×3 (09:18→20:30)
[2016-11-27] MEDS: REMERON PO SCH ×3 (09:18→20:31)
--- NOTE | 2016-11-27 14:48 | NUR ---
DISCHARGE PLAN: SW SPOKE TO DAUGHTER, ARLETH WHO STATES THAT PT'S IS AGREEABLE WITH PLAN AND WOULD LIKE TO TRY [facility] IN [place]. INFORMATION FAXED TO [phone], ATTENTION TO MALATHI [employer]INE[employer] FOR POSSIBLE ADMISSION. GODWIN CONTACTED MALATHI AT [phone]. SS TO FOLLOW. PASRR-1 SENT BY FAX TO [facility] FOR [id number].
[2016-11-27 19:15] VITALS: BP 136/76
[2016-11-27 20:35] VITALS: BP 136/76
--- NOTE | 2016-11-27 21:18 | NUR ---
BEHAVIORS PT. ORIENTED TO NAME NOT YEAR OR MONTH. DENIES DEPRESSION,ANXIETY AND PAIN. PT. WAS IN BED AND DECLINED TO ATTEND GROUP OR EAT A SNACK.
[2016-11-28] MEDS: SYNTHROID PO SCH (06:05)
--- NOTE | 2016-11-28 07:36 | NUR ---
Dr. Enid Rossi notified of pt's varying, elevated BP. Reports that he will come later to assess pt.
[2016-11-28 07:40] VITALS: BP 156/92
[2016-11-28] MEDS: NAMENDA PO SCH ×2 (08:41→20:16)
[2016-11-28] MEDS: ASPIRIN EC PO SCH (08:41)
[2016-11-28] MEDS: ARICEPT PO SCH (08:41)
--- NOTE | 2016-11-28 08:51 | PRM.PN ---
Mood: "ALRIGHT", DENIES FEELING DEPRESSED Sleep: SLEPT 8.25 HOURS LAST NIGHT, SLEEPS 7-8 HOURS ON MOST NIGHTS, TAKES NAPS Appetite: NORMAL APPETITE Suidical thoughts: NONE REPORTED Homicidal thoughts: NONE REPORTED Recent stressors: STRESS OF MENTAL ILLNESS Family support: SUPPORTIVE AND FAMILY Aggressive Behavior: NONE REPORTED Ability to Perform ADL'sc: YES Psychotic sympstoms: DELUSIONAL THAT HER IS CHEATING ON HER Manic Symptoms: NONE REPORTED Living situation: WAS LIVING AT HOME Illicit Drug usec: NONE REPORTED Alcoholo use: NONE REPORTED Tobacco use: NONE REPORTED Family,PT,Surgical,&Current HX: Anxity Symptoms: MODERATE ANXIETY LEVEL Anger/Irritablility: LIMITED ANGER AND IRRITABILITY Muscle Strength & Tone: WNL Gait & Station: Ataxic Appearance: Well groomed/hygience, Casual attire, Normal weight, Appears age stated Attitude & Behaviour: Cooperative/Pleasant, Good eye contact Mood & Affect: Euthymic/appr/congruent, Iabile Orientation: Disoriented to place, Disoriented to time, Disoriented to situation Attention/Concentration: Fair attention, Fair concentration Speech: Reg rate/vol/rhyth/prosod Judgement/Insight: Poor judgement, Poor insight Thought Process: Loose, Tangential Language: Swedish Thought content/Abnormal/Psych: A/V Barrett, Delusions Fund of Knowledge: Other Associations: JAREN Memory (recent and remote): Recent memory repaired, Remote memory repaired Constitutional: None Neurological: Weakness Psychiatric: Anxious, Psychosis [place] I: DELUSIONAL DISORDER; PSYCHOSIS; DEMENTIA; ANXIETY; DEPRESSION [place] II: DEFERRED [place] III: REFER TO PMH/MEDICAL CHART [place] IV: STRESS OF MENTAL ILLNESS [place] V: GAF=25 TO 30 Assessment/Plan Assessment/Plan Assessment/Plan First Vital Signs Date Time Temp Pulse Resp B/P (MAP) Pulse Ox O2 Delivery O2 Flow Rate FiO2 11/07/16 15:46 97.9 81 18 99 11/07/16 15:50 136/82 (100) 11/07/16 17:45 Room Air Last Vital Signs Date Time Temp Pulse Resp B/P (MAP) Pulse Ox O2 Delivery O2 Flow Rate FiO2 11/28/16 07:40 97.8 87 16 156/92 (113) 97 Room Air THE PATIENT WAS SEEN BY DR. JAVED FACE TO FACE ALONG WITH THE TREATMENT TEAM. THE PATIENT CAME FROM HOME IN [place], [place]. SHE WAS VERY DELUSIONAL AND PSYCHOTIC WHEN SHE CAME TO THE FACILITY. SHE HAS SHOWN IMPROVEMENT WITH MEDICATION. SHE IS REPORTEDLY TAKING HER MEDICATIONS. THE PATIENT WALKS SLOWLY AND SHE IS A FALLS RISK. SHE WOULD BENEFIT FROM PHYSICAL THERAPY. THE PATIENT DID NOT KNOW THE DATE TODAY. THE PATIENT KNEW IT WAS "SUMMER TIME." THE PATIENT REPORTS HER MOOD IS "GOOD." THE PATIENT DENIES FEELING DEPRESSED. ASSESSMENT: DELUSIONAL DISORDER; PSYCHOSIS; ALZHEIMER'S DEMENTIA WITH BEHAVIOR PROBLEMS; DEPRESSION; GENERALIZED ANXIETY DISORDER PLAN: 1) CONTINUE BORGES [facility]. 2) CONTINUE CURRENT MEDICATIONS. STAFF AGREEABLE WITH THE PLAN. SUPPORTIVE THERAPY GIVEN. THE PATIENT IS PLANNING ON GOING TO A CUSTODIAL HOME IN [place], [place]. Problems: (1) Dementia Status: Chronic ICD Code: F03.90 - Unspecified dementia without behavioral disturbance SNOMED: 85124248 (2) Delusional disorder Status: Acute ICD Code: F22 - Delusional disorders SNOMED: 90344306 (3) Psychosis Status: Acute ICD Code: F29 - Unspecified psychosis not due to a substance or known physiological condition SNOMED: 99707898 (4) Alzheimer's dementia with behavioral disturbance Status: Chronic ICD Code: G30.8 - Other Alzheimer's disease; F02.81 - Dementia in other diseases classified elsewhere with behavioral disturbance SNOMED: [id number] Patient History: Unknown LANA JAVED IV, MD Nov 28, 2016 08:51
--- NOTE | 2016-11-28 10:27 | NUR ---
UA Dr. Rossi notified of pt's UA and urine culture preliminary report. No new orders @ this time.
--- NOTE | 2016-11-28 10:30 | NUR ---
UA Received orders from Dr. Rossi for repeat UA and culture.
--- NOTE | 2016-11-28 12:32 | NUR ---
Status/TX team Pt was seen by Dr. Howard and tx team this A.M. Denies depressive symptoms, states, "I feel good." Denies anxiety, thoughts of hurting self, or thoughts of hurting others. When pt was asked why she thought she was in psych facility, pt stated, "I don't know. There's nothing wrong with me." When asked how good she thought her memory was, pt stated, "My memory is good." Pt cont to believe that her is having affair with her "little niece." States, "You can ask anybody in town, they all know." Pt is able to be redirected with verbalization regarding delusional thinking. Has flat affect, but is pleasant and cooperative when approached. Plans are for pt to d/c to [facility] in [place], [place]. Pt agreeable to discharge plan @ this time.
--- NOTE | 2016-11-28 15:45 | NUR ---
UA SPECIMEN UA OBTAINED AT THIS TIME AND SENT TO LAB FOR UA AND CULTURE. PT WAS CLEANED BY STAFF PRIOR TO VOIDING. WILL NOTIFY DR WHEN RESULTS COME IN.
[2016-11-28 16:40] LABS: APPEARANCE,URINE CLEAR (CLEAR); BILIRUBIN,URINE NEGATIVE (NEGATIVE); UA COLOR YELLOW (YELLOW); UROBILINOGEN,URINE NORMAL (NEGATIVE)
[2016-11-28 19:00] VITALS: BP 121/76
[2016-11-28] MEDS: RISPERDAL PO SCH (20:16)
[2016-11-28] MEDS: REMERON PO SCH (20:16)
--- NOTE | 2016-11-28 22:30 | NUR ---
BEHAVIORS PT. ORIENTED TO NAME. RATED DEPRESSION , ANXIETY AND PAIN 0 .ATTENDED GROUP AND ATE SNACKS BUT DID NOT WATCH THE MOVIE BUT DID STAY IN THE DAY ROOM DURING GROUP.
--- NOTE | 2016-11-29 05:40 | NUR ---
BEHAVIORS PT. WAS ORIENTED TIMES 1 TO NAME. WAS IN OWN ROOM LYING ON BED AND DECLINED TO ATTEND GROUP . PT. REFUSED TO CHANGE CLOTHES FOR BED.
[2016-11-29] MEDS: SYNTHROID PO SCH (06:13)
[2016-11-29] MEDS ORDERED: MIRT15TA3 PO (07:12)
[2016-11-29] MEDS ORDERED: MEMA10TA PO (07:12)
[2016-11-29] MEDS ORDERED: RISP1TAB45 PO (07:12)
[2016-11-29] MEDS ORDERED: HALO5TAB PO (07:12)
[2016-11-29 07:44] VITALS: BP 132/82
--- NOTE | 2016-11-29 07:51 | NUR ---
Status Pt is alert and oriented to self and season. Denies depressive symptoms, has not been tearful. No hallucinations noted @ this time. Continues to have delusions regarding having an affair. Pt is able to be redirected with verbalization. Does not initiate interaction with staff or peers, but does respond appropriately when approached.
[2016-11-29] MEDS: NAMENDA PO SCH ×2 (08:40→20:47)
[2016-11-29] MEDS: ARICEPT PO SCH (08:40)
[2016-11-29] MEDS: ASPIRIN EC PO SCH (08:40)
--- NOTE | 2016-11-29 10:36 | PRM.PN ---
Mood: UP AND DOWN, MOOD HAS IMPROVED FROM ADMISSION Sleep: SLEPT 8 HOURS LAST NIGHT Appetite: NORMAL APPETITE Suidical thoughts: NONE REPORTED Homicidal thoughts: NONE REPORTED Recent stressors: STRESS OF MENTAL ILLNESS Family support: AND FAMILY Aggressive Behavior: NONE REPORTED Ability to Perform ADL'sc: NEEDS ASSISTANCE Psychotic sympstoms: DELUSIONAL, PARANOID, DENIES HALLUCINATIONS Manic Symptoms: NONE REPORTED Living situation: WAS LIVING AT HOME, GOING TO CUSTODIAL Illicit Drug usec: NONE REPORTED Alcoholo use: NONE REPORTED Tobacco use: NONE REPORTED Family,PT,Surgical,&Current HX: Anxity Symptoms: MILD ANXIETY LEVEL Anger/Irritablility: LIMITED ANGER AND IRRITABILITY Muscle Strength & Tone: WNL Gait & Station: Ataxic Appearance: Well groomed/hygience, Casual attire, Normal weight, Appears age stated Attitude & Behaviour: Cooperative/Pleasant, Good eye contact Mood & Affect: Euthymic/appr/congruent, Iabile Orientation: Disoriented to place, Disoriented to time, Disoriented to situation Attention/Concentration: Fair attention, Fair concentration Speech: Impaired Judgement/Insight: Poor judgement, Poor insight Thought Process: Loose, Tangential Language: Sudanese Thought content/Abnormal/Psych: Delusions Fund of Knowledge: Other Associations: JAREN Memory (recent and remote): Recent memory repaired, Remote memory repaired Constitutional: None Neurological: None Psychiatric: Anxious, Psychosis [place] I: DELUSIONAL DISORDER; PSYCHOSIS; ANXIETY, DEMENTIA, DEPRESSION [place] II: DEFERRED [place] III: REFER TO PMH/MEDICAL CHART [place] IV: STRESS OF MENTAL ILLNESS [place] V: GAF=25 TO 30 Assessment/Plan Assessment/Plan Assessment/Plan First Vital Signs Date Time Temp Pulse Resp B/P (MAP) Pulse Ox O2 Delivery O2 Flow Rate FiO2 11/07/16 15:46 97.9 81 18 99 11/07/16 15:50 136/82 (100) 11/07/16 17:45 Room Air Last Vital Signs Date Time Temp Pulse Resp B/P (MAP) Pulse Ox O2 Delivery O2 Flow Rate FiO2 11/29/16 07:44 97.2 86 16 132/82 (99) 93 Room Air THE PATIENT WAS SEEN BY DR. JAVED ALONG WITH THE TREATMENT TEAM VIA TELEMEDICINE EQUIPMENT (VSEE). THE PATIENT REPORTS HER MOOD IS "ALRIGHT." THE PATIENT REPORTS SLEEPING AND EATING WELL. THE PATIENT IS DISORIENTED TO PLACE, TIME, AND SITUATION. THE PATIENT KNEW SHE WAS IN [place]. THE PATIENT KNEW SHE NORMALLY LIVED IN [place]. THE PATIENT DENIES FEELING ANXIOUS. THE PATIENT HAS DELUSIONAL THINKING. THE PATIENT DENIES AUDITORY OR VISUAL HALLUCINATIONS. THE PATIENT HAS POOR INSIGHT INTO HER ISSUES. ASSESSMENT: DELUSIONAL DISORDER; PSYCHOSIS; ALZHEIMER'S DEMENTIA WITH BEHAVIOR PROBLEMS; GENERALIZED ANXIETY DISORDER; DEPRESSION PLAN: 1) CONTINUE BORGES [facility]. PLAN TO DISCHARGE TO CUSTODIAL TOMORROW. 2) CONTINUE CURRENT MEDICATIONS. STAFF AGREEABLE WITH THE PLAN. THE PATIENT IS TOLERATING HER MEDICATIONS FINE. Problems: (1) Dementia Status: Chronic ICD Code: F03.90 - Unspecified dementia without behavioral disturbance SNOMED: 45158803 (2) Delusional disorder Status: Acute ICD Code: F22 - Delusional disorders SNOMED: 75416169 (3) Psychosis Status: Resolved ICD Code: F29 - Unspecified psychosis not due to a substance or known physiological condition SNOMED: 96607702 (4) Alzheimer's dementia with behavioral disturbance Status: Chronic ICD Code: G30.8 - Other Alzheimer's disease; F02.81 - Dementia in other diseases classified elsewhere with behavioral disturbance SNOMED: [id number] Patient History: Unknown LANA JAVED IV, MD Nov 29, 2016 10:36
--- NOTE | 2016-11-29 11:51 | NUR ---
VSEE Pt was seen by Dr. Howard via telemed, no new orders @ this time.
[2016-11-29 20:00] VITALS: BP 147/76
[2016-11-29] MEDS: REMERON PO SCH (20:47)
[2016-11-29] MEDS: RISPERDAL PO SCH (20:47)
[2016-11-30] MEDS: SYNTHROID PO SCH (06:21)
[2016-11-30 08:21] VITALS: BP 157/74
[2016-11-30] MEDS: ASPIRIN EC PO SCH (09:08)
[2016-11-30] MEDS: NAMENDA PO SCH (09:08)
[2016-11-30] MEDS: ARICEPT PO SCH (09:09)
--- NOTE | 2016-11-30 12:57 | PRM.DC ---
Discharge Summary Date of Arrival on Unit: Nov 07, 2016 Reason for Visit: AD with Behavior, Delusional D/O Patient History: Unknown History Present Illness: Results(Labs/Rad) First Vital Signs Date Time Temp Pulse Resp B/P (MAP) Pulse Ox O2 Delivery O2 Flow Rate FiO2 11/07/16 15:46 97.9 81 18 99 11/07/16 15:50 136/82 (100) 11/07/16 17:45 Room Air Last Vital Signs Date Time Temp Pulse Resp B/P (MAP) Pulse Ox O2 Delivery O2 Flow Rate FiO2 11/30/16 08:21 98.6 63 16 157/74 (101) 94 Room Air Intake and Output 11/30/16 07:00 Intake Total 1090 ml Balance 1090 ml Intake Oral 1090 ml # Voids 2 Current Medications Medications (Trade) Dose Ordered Sig/Margarita Route PRN Reason Start Time Stop Time Status Last Admin Dose Admin Haloperidol (Haldol) 2 mg Q4HR PRN PO PSYCHOSIS 11/07/16 18:30 12/07/16 18:29 11/07/16 18:39 Lorazepam (Ativan) 0.5 mg Q4HR PRN PO ANXIETY 11/07/16 18:30 12/07/16 18:29 11/18/16 04:49 Haloperidol Lactate (Haldol) 2 mg Q4HR PRN IM PSYCHOSIS 11/07/16 18:30 12/07/16 18:29 11/09/16 07:37 Lorazepam (Lorazepam) 0.5 mg Q4HR PRN IM ANXIETY 11/07/16 19:00 12/07/16 18:59 Risperidone (Risperdal) 0.25 mg BID PO 11/07/16 21:00 11/09/16 08:27 DC 11/09/16 07:23 Aspirin (Aspirin Ec) 81 mg DAILY PO 11/08/16 09:00 12/08/16 08:59 11/30/16 09:08 Levothyroxine Sodium (Synthroid) 88 mcg ACB PO 11/08/16 06:30 12/08/16 06:29 11/30/16 06:21 Miscellaneous Medication (Namenda) 10 mg BID PO 11/08/16 09:00 12/08/16 08:59 11/30/16 09:08 Donepezil HCl (Aricept) 10 mg DAILY PO 11/08/16 09:00 12/08/16 08:59 11/30/16 09:09 Mirtazapine (Remeron) 15 mg HS PO 11/07/16 21:00 11/14/16 10:21 DC 11/13/16 20:20 Lorazepam (Ativan) 0.5 mg STK-MED ONCE .ROUTE 11/07/16 16:35 11/07/16 18:36 DC Divalproex Sodium (Depakote Er) 500 mg BID PO 11/07/16 21:00 11/13/16 08:45 DC 11/12/16 20:29 Haloperidol (Haldol) 1 mg STK-MED ONCE .ROUTE 11/07/16 16:38 11/07/16 18:39 DC Aspirin (Aspirin Ec) 81 mg STK-MED ONCE .ROUTE 11/08/16 06:46 11/08/16 08:47 DC Donepezil HCl (Aricept) 5 mg STK-MED ONCE .ROUTE 11/08/16 06:46 11/08/16 08:47 DC Miscellaneous Medication (Namenda) 10 mg STK-MED ONCE .ROUTE 11/08/16 06:47 11/08/16 08:48 DC Lorazepam (Ativan) 2 mg STK-MED ONCE .ROUTE 11/09/16 05:58 11/09/16 07:59 DC Risperidone (Risperdal) 0.5 mg BID PO 11/09/16 09:00 11/19/16 16:43 DC 11/19/16 07:46 Risperidone (Risperdal) 0.25 mg STK-MED ONCE .ROUTE 11/09/16 06:43 11/09/16 08:45 DC Divalproex Sodium (Depakote Er) 500 mg HS PO 11/13/16 21:00 11/16/16 17:07 DC 11/15/16 20:00 Divalproex Sodium (Depakote Er) 500 mg STK-MED ONCE PO 11/13/16 18:20 11/13/16 20:21 DC Mirtazapine (Remeron) 30 mg HS PO 11/14/16 21:00 11/23/16 19:45 DC 11/22/16 20:00 Mirtazapine (Remeron) 15 mg STK-MED ONCE .ROUTE 11/14/16 18:16 11/14/16 20:18 DC Divalproex Sodium (Depakote Er) 250 mg HS PO 11/16/16 21:00 11/16/16 21:15 DC 11/16/16 20:24 Divalproex Sodium (Depakote Er) 250 mg STK-MED ONCE PO 11/16/16 18:21 11/16/16 20:22 DC Divalproex Sodium (Depakote Er) 250 mg HS PO 11/16/16 21:15 11/19/16 16:43 DC 11/18/16 20:44 Lorazepam (Ativan) 0.5 mg STK-MED ONCE .ROUTE 11/18/16 02:47 11/18/16 04:48 DC Risperidone (Risperdal) 2 mg HS PO 11/19/16 21:00 11/23/16 19:45 DC 11/22/16 20:00 Mirtazapine (Remeron) 45 mg HS PO 11/23/16 21:00 12/23/16 20:59 11/29/16 20:47 Risperidone (Risperdal) 3 mg HS PO 11/23/16 21:00 12/23/16 20:59 11/29/16 20:47 Scheduled Aspirin (Aspir 81), 1 TAB PO DAILY, (Reported) Donepezil Hcl (Donepezil Hcl), 1 TAB PO DAILY, (Reported) Levothyroxine Sodium (Levothyroxine Sodium), 1 TAB PO DAILY, (Reported) Memantine Hcl (Namenda), 10 MG PO BID Mirtazapine (Remeron), 45 MG PO HS Risperidone (Risperdal), 3 MG PO HS Scheduled PRN Haloperidol (Haloperidol), 2 MG PO Q4HR PRN for PSYCHOSIS Discontinued Medications Divalproex Sodium (Divalproex Sodium Er), 0.5 TAB PO BID, (Reported) Discontinued Reason: No Longer Taking Memantine Hcl (Namenda), 28 MG PO DAILY, (Reported) Discontinued Reason: No Longer Taking Mirtazapine (Mirtazapine), 1 TAB PO HS, (Reported) Discontinued Reason: No Longer Taking Sepsis Evaluation @ Discharge Course Blood Pressure Systolic: 157 Blood Pressure Diastolic: 74 Blood Pressure Mean: 101 Plan Problems: (1) Dementia Status: Chronic ICD Code: F03.90 - Unspecified dementia without behavioral disturbance SNOMED: 79191030 (2) Delusional disorder Status: Acute ICD Code: F22 - Delusional disorders SNOMED: 54733750 (3) Alzheimer's dementia with behavioral disturbance Status: Chronic ICD Code: G30.8 - Other Alzheimer's disease; F02.81 - Dementia in other diseases classified elsewhere with behavioral disturbance SNOMED: 2784077934554 (4) Psychosis Status: Resolved ICD Code: F29 - Unspecified psychosis not due to a substance or known physiological condition SNOMED: 18081450 KAILYN SANTANA MD Nov 30, 2016 12:57
[2016-11-30 15:22] VITALS: BP 157/74
--- NOTE | 2016-11-30 16:25 | NUR ---
DISCHARGE: PT DISCHARGED HOME WITH FAMILY AND [facility]. PT TO FOLLOW UP WITH DR BUTTS WITHIN 30 DAYS.
--- NOTE | 2016-11-30 20:07 | DSH ---
DATE OF DISCHARGE: 11/30/2016 HOSPITAL COURSE: The patient is a 76-year-old female who is an involuntary admission at the [facility] from [facility]. She was living at home with her . She was very delusional when she was admitted. She thought her was having an affair and she was having aggressive behavior towards her . The patient was very angry and irritable when she came into the facility. The patient was stable on psychiatric medications. She was monitored closely. She showed improvement in her appetite and sleep. She participated in groups and she showed better insight into her issues. She was not as delusional and psychotic when she was discharged from the [facility] facility. She was not suicidal or homicidal when she was discharged. She was evaluated by 2 different nursing homes, that the family requested for skilled care before she went home. She was declined for medical reasons and not meeting criteria for nursing home care by both facilities. Family thought it best to just take her home. She was still thinking that her was having an affair when she was discharged, but she was not as delusional as she was when she was admitted. She was not deemed to be a risk to herself or others when she was discharged. She was taking all of her medications. She was going to be cooperative with staff. She was extremely confused while she was in the facility. She was disoriented to place, time, and situation on most interviews. She did ask about going home a lot. She did state that she will be cooperative with her when she went home. She was not having any hallucinations when she was discharged. She reported having hope for the future. DISCHARGE DIAGNOSES : Delusional disorder; psychosis; generalized anxiety disorder; dementia with behavior disturbance; depression. DISCHARGE PLAN: 1. The patient is being discharged home in stable condition. She plans to follow up with Dr. Aguila Granda at the [facility] outpatient clinic. 2. The patient is being discharged on the following psychotropic medications: Risperdal 3 mg p.o. at bedtime, Remeron 45 mg p.o. at bedtime, Namenda 10 mg p.o. b.i.d., lorazepam 0.5 mg p.o. q.4 hours p.r.n. anxiety, Haldol 2 mg p.o. q.4 hours p.r.n. psychosis and Aricept 10 mg p.o. daily. She was tolerating these medications fine. Family was agreeable with the plan. Fortunato Howard IV MD DR: /vira JOB# [id number]
== END 2016-11-30 15:25 | disposition home health service (06) | DRG 57 ==
LOC: ER 15:24 → GP 17:12 → EEVIPCON 17:12
PROVIDERS: ADMIT Psychiatry & Neurology Psychiatry; ATTEND Psychiatry & Neurology Psychiatry
DX: G30.9 Alzheimer's disease, unspecified (principal); F32.3 Major depressive disorder, single episode, severe with psychotic features; F02.81 Dementia in other diseases classified elsewhere, unspecified severity, with behavioral disturbance; F29 Unspecified psychosis not due to a substance or known physiological condition; F41.1 Generalized anxiety disorder; E03.9 Hypothyroidism, unspecified; Z79.899 Other long term (current) drug therapy; Z90.711 Acquired absence of uterus with remaining cervical stump; Z79.82 Long term (current) use of aspirin
CPT/HCPCS: 36415; 36600; 70450; 70460; 71010; 80053; 80061; 80164; 80178; 80307; 81000; 81002; 82550; 82553; 82607; 82803; 83036; 83880; 84443; 84484; 85025; 85610; 85730; 86140; 87086; 93005; 97150; 97167; 99285; J2060; Q9967; A9270; G8987; G8988; J1630